=== PATIENT | male | born 1990 | race Caucasian/White ===

== ENCOUNTER 2020-02-12 18:25 | Outpatient (CLI) | payer SELFPAY | END 2020-02-12 18:26 | disposition home or self-care (01) | LOC: COV 18:25 → EEVIPCON 18:25 → COV 18:26 | PROVIDERS: ATTEND Family Medicine | DX: R06.02 Shortness of breath (principal); R07.0 Pain in throat; R09.81 Nasal congestion; J34.89 Other specified disorders of nose and nasal sinuses; Z20.828 Contact with and (suspected) exposure to other viral communicable diseases ==

== ENCOUNTER 2023-06-26 16:23 | Emergency (ER) | payer OTHER, MEDICAID ==
--- NOTE | 2023-06-26 17:12 | XRAY Report ---
PROCEDURE: Forearm RT INDICATIONS: fell/pain + tenderness/ swelling R FOREARM TECHNIQUE: 2 views of the forearm were acquired. COMPARISON: None. FINDINGS: Bones: There is a minimally displaced transverse fracture in the distal radial metaphysis. There is possible intra-articular involvement. No suspicious bony lesions. Soft tissues: No suspicious soft tissue calcifications or masses. IMPRESSION: Distal radial metaphyseal fracture. Reviewed by: Allen Goldstein MD on 06/26/2023 5:11 PM PDT Approved by: Allen Goldstein MD on 06/26/2023 5:11 PM PDT Station ID: [id number]
--- NOTE | 2023-06-26 17:43 | ED Physician Documentation ---
PD HPI UPPER EXT INJURY - Stated complaint Stated Complaint: RT HAND INJ - Chief complaint Chief Complaint: Ext Problem - History obtained from History obtained from: Patient - Additonal information Additional information: Patient is a 33-year-old male with no significant past medical history presenting for evaluation of right wrist injury. Patient was reportedly slipped on a wet dock area and landed with his arm outstretched. He is right-hand dominant. He reports pain to the wrist. X-ray of the forearm was ordered from triage. No head injury. Does not take a blood thinner. Review of Systems Musculoskeletal: reports: Extremity pain Neurologic: denies: Head injury PD PAST MEDICAL HISTORY - Past Medical History Past Medical History: No Cardiovascular: None Respiratory: None Neuro: None Endocrine/Autoimmune: None GI: None : None HEENT: None Psych: None Musculoskeletal: None Derm: None - Past Surgical History Past Surgical History: No - Present Medications Home Medications: Ambulatory Orders Medication Instructions Recorded Confirmed Oxycodone HCl/Acetaminophen 1 each PO Q6H PRN #14 tablet 06/26/23 [Percocet 5-325 mg Tablet] - Allergies Allergies/Adverse Reactions: Allergies Allergy/AdvReac Type Severity Reaction Status Date / Time No Known Drug Allergies Allergy Verified 06/26/23 16:49 - Social History Does the pt smoke?: Yes Smoking Status: Current every day smoker Does the pt drink ETOH?: Yes Does the pt have substance abuse?: No - Immunizations Immunizations are current?: Yes - POLST Patient has POLST: No PD ED PE NORMAL - General General: Alert and oriented X 3, No acute distress, Well developed/nourished - HEENT HEENT: Atraumatic - Cardiac Cardiac: Strong equal pulses - Respiratory Respiratory: No respiratory distress - Extremities Extremities: Other (Tenderness and swelling to right wrist with pain on range of motion, small superficial abrasion; No tenderness over hand or more proximally in the forearm) - Neuro Neuro: Alert and oriented X 3, No motor deficit, No sensory deficit, Normal speech Results - Vitals Vitals: Vital Signs - 24 hr 06/26/23 06/26/23 16:43 18:12 Temperature 36.8 C 36.6 C Heart Rate 67 60 Respiratory 16 16 Rate Blood Pressure 118/64 116/60 O2 Saturation 99 100 Oxygen O2 Source Room air PD Medical Decision Making - ED course Complexity details: reviewed results, d/w patient ED course: Pt with fall and injury to R wrist. Neurovasculalry intact. XR with distal radius fracture. Sugar tong splint and sling applied. Declines pain meds here. Aware of need for close follow up and concerning symptoms to return for. Departure - Departure Disposition: 01 Home, Self Care Clinical Impression: Distal radius fracture, right Qualifiers: Encounter type: initial encounter Fracture type: closed Fracture morphology: other fracture Qualified Code(s): S52.591A - Other fractures of lower end of right radius, initial encounter for closed fracture Condition: Stable Instructions: ED Splint Care Fiberglass, ED Fx Wrist General Follow-Up: Byron Mcfarlane MD [Provider Admit Priv/Credential] - Prescriptions: Oxycodone HCl/Acetaminophen [Percocet 5-325 mg Tablet] 1 each PO Q6H PRN #14 tablet PRN Reason: pain Comments: You have a fracture in your right wrist. We have applied a splint and given you a sling. You should have close follow-up with an orthopedic surgeon I have listed 1 locally on the [place]. I have also sent a prescription for narcotic pain medication to [facility] in [place]. I am prescribing a short course of narcotic pain medication for you. These are potentially dangerous and addictive medications that should be used carefully. These medications may constipate you. Take an yrgw-qja-jtocvrp stool softener (docusate) twice daily with plenty of water while taking these medications. If you go 24 hours without a bowel movement, take [id number] miralax, per package instructions. Do not drink or drive while taking these medications. If you received narcotic or sedating medications while in the emergency department, do not drive for 24 hours. Store this medication in a safe, secure place and out of reach of children. It is a violation of federal law to give or sell this medication to another person or to use in a manner other than prescribed. The ED will not refill narcotic prescriptions, including prescriptions lost or stolen. To dispose of unwanted medications: 1. [facility] at [address] [facility] in [place] has a medication drop box. They accept prescription medications (in pill form) Sunday through Sunday 9:00 a.m. to 5:00 p.m. 2. The [facility] [employer] accepts prescription medications (in pill form only) for disposal year round. Call for more information. 3. Contact the [facility] for the next [facility] sponsored prescription drug collection event. , [phone], or [phone]; Note that many narcotic pain relievers also contain Tylenol/acetaminophen. Please ensure that your total dose of acetaminophen from all sources does not exceed 3 g (3000 mg) per day. Return to the ER with any worsening symptoms such as increased pain, numbness or any other concerns. Forms: PCP List Discharge Date/Time: 06/26/23 18:12
[2023-06-26 18:19] VITALS: BP 116/60; O2SAT 100
== END 2023-06-26 18:12 | disposition home or self-care (01) ==
LOC: ED 16:23
DX: S52.501A Unspecified fracture of the lower end of right radius, initial encounter for closed fracture (principal); W01.0XXA Fall on same level from slipping, tripping and stumbling without subsequent striking against object, initial encounter; Y92.89 Other specified places as the place of occurrence of the external cause; F17.200 Nicotine dependence, unspecified, uncomplicated
CPT/HCPCS: 29125; 99283; 99284